=== PATIENT | female | born 1955 | race Caucasian/White ===

== ENCOUNTER → 2016-08-05 | Outpatient (CLI) | payer OTHER ==
[~2016-08-05] MED LIST: ANTIVERT PO; AVAPRO PO; CERTAGEN PO; COZAAR100 MG PO; LIPITOR PO; OMEPRAZOLE20 M1 PO; PHENERGAN PO; PROGESTERONE100 MG PO; PYRIDIUM PO; SYNTHROID PO; VITAMIN D PO; VIVELLE-DO.0375 MG/2 TOP
--- NOTE | ~2016-08-05 | CT4 ---
[facility] A Service of [facility] & [facility] RADIOLOGY TEXT RESULTS PATIENT: DAVID LAMAS LOCATION: [facility] [[email or web address]] : 57 UNIT #: [id number] AGE: [address]: OCTAVIA SOARES MD SEX: F ORDER DR: [id number] [place] [id number] O MR#: [id number] Acc #: [id number] NAME: DAVID LAMAS. : 1955 SEX: F STUDY DATE/TIME: 08/05/2016 12:43 UNIT: [facility] [[email or web address]] ROOM: STUDY DESCRIPTION: CT Abd and Pelv Wo Cont Attending Physician: Octavia Soares M.D. Referring Physician: Octavia Soares M.D. Ordering Physician: Octavia Soares M.D. Primary Care Physician: Octavia Soares M.D. MEDICAL IMAGING REPORT This report is preliminary unless electronic signature is present. EXAM CT abdomen and pelvis HISTORY Bilateral kidney stones, blood in urine. Pain lower abdomen area. Started over weekend 08/02/2016. Pain lower right side. TECHNIQUE This CT exam was performed with one or more of the following radiation dose reduction techniques: automatic exposure control, adjustment of mA and/or kV according to patient size, and iterative reconstruction. FINDINGS CT abdomen and pelvis performed without administration of oral or intravenous contrast. No prior CTs of abdomen and pelvis for comparison at this institution. There are limited views of abdomen from CT chest dated 06/04/2012. Linear scarring or atelectasis left lung base. Inferior heart and pericardium unremarkable. Liver is unremarkable. Gallbladder, pancreas, spleen, adrenal glands unremarkable. Left kidney and ureter unremarkable. Nonobstructing intrarenal calculus lower pole right kidney. Slightly staghorn-like configuration measuring up to about 14.0 mm in maximum dimension. No hydronephrosis and no hydroureter. No secondary signs of recent stone passage. There is no clear indication of acute perinephric inflammatory change and there is no perinephric fluid collection. No indication of cystic or solid parenchymal mass lesion. CT PELVIS: No inguinal adenopathy. 7.0 mm left paracentral focus of skin thickening mons pubis most likely some form of cutaneous inclusion cyst. The urinary bladder is decompressed. The uterus and adnexal regions are unremarkable. No pelvic or retroperitoneal adenopathy. Small to moderate hiatal hernia. More pronounced than in 2013. Remainder of stomach unremarkable. Small bowel, appendix, colon unremarkable. Unopacified vascular structures show scattered atherosclerotic arterial STS. [facility] A Service of [facility] RADIOLOGY TEXT RESULTS PATIENT: DAVID LAMAS LOCATION: [facility] [[email or web address] : 57 UNIT #: [id number] AGE: [address]: OCTAVIA SOARES MD SEX: F ORDER DR: calcifications. Bony structures show no acute appearing abnormality. IMPRESSION 1. There is a prominent nonobstructing calculus in the lower pole of the right kidney. It has a slightly staghorn configuration and measures up to about 14.0 mm in maximum diameter. There is no hydronephrosis. No other renal calculi are seen bilaterally and no ureteral or bladder calculi are seen. There are no secondary signs of recent stone passage. 2. No perinephric fluid collection or acute appearing inflammatory change. 3. Gallbladder, pancreas, appendix, uterus and adnexal regions unremarkable in appearance. 4. Scattered atherosclerotic arterial calcifications. 5. Not mentioned in body of report above, there appears to be mild to perhaps moderate dextroscoliosis of the visualized lower thoracic spine. There is no acute-appearing bony abnormality. See remainder of incidental findings in body of report above. Dictated by... Tony Mclaughlin M.D. THIS IS AN ELECTRONICALLY VERIFIED REPORT Tony Mclaughlin M.D. at 08/06/2016 5:58 PM Luis TD: 08/05/2016 15:33 JOB #: [id number] MEDICAL IMAGING REPORT Page 1 of 1
== END | disposition home or self-care (01) ==
LOC: SCT 11:48
DX: N20.0 Calculus of kidney (principal); I70.90 Unspecified atherosclerosis; M41.9 Scoliosis, unspecified
CPT/HCPCS: 74176